=== PATIENT | female | born 1935 | race Caucasian/White ===

== ENCOUNTER 2017-10-03 13:54 | Observation (INO) | payer MEDICARE ==
[2017-10-03 16:03] LABS: CKMB 2.2 ng/mL (0-6.6); Troponin I 0.053 ng/mL (< 0.028)
[2017-10-03] MEDS ORDERED: Albuterol Sulfate 2.5 mg/3 ml Neb NEB PRN (16:53)
--- NOTE | 2017-10-03 18:19 | HP ---
DATE OF ADMISSION: 10/03/2017 CHIEF COMPLAINT: Nasal bleeding and elevated troponins. HISTORY OF PRESENT ILLNESS: This is an 82-year-old white female who initially went to [place] [facility] f mariyaing a sudden onset of nasal bleeding from her right nostril started at around 12:30 in the [facility] ght wherein she tried to stop bleeding on her own using cotton with pressure on the nostril area. As bleeding was pretty worse and she lives all alone away from [place], she called ER at [facility] she went to the ER and the patient was seen by ER physician over there and by the time the bleeding has stopped. The patient is on Eliquis as it was started by supervisor firearms for her history of atrial fibrillation. She is also on aspirin and also Plavix is on the EMR, but the patient denies ta rene any Plavix. The patient was complaining of weakness for the past 1-2 weeks and this concerned w as also raised by her son and the patient lost her appetite and she has been suffering with cough and congestion for the past 1 week and she went to her primary care physician, wherein she was given pre dnisolone to be taken 20 mg and she took for 3 days and also doxycycline was started. The patient wa s feeling very weak and she was not eating for the past 2 days and with elevated troponin, there was suspicion for a possible worsening coronary artery disease and the patient was transferred to [facility] ER for further evaluation of her cardiac status. The patient was seen today. Her EKG was done, which was unremarkable. She had a repeat troponin, which is pending at this time, but the patient ot herwise was stable. She denies having any chest pain, no nausea, no vomiting. Complains of severe c ongestion in her chest and associated with cough for the past 1 week as explained above. PAST MEDICAL HISTORY: 1. Ischemic cardiomyopathy. 2. CABG done 12 years ago. 3. AICD. 4. Type 2 diabetes mellitus. PAST SURGICAL HISTORY: 1. Left breast lumpectomy. 2. Hysterectomy. 3. Partial thyroidectomy. ALLERGIES: CLINDAMYCIN, PENICILLIN, CODEINE, LYRICA and SULFA ANTIBIOTICS. SOCIAL HISTORY: No history of alcohol, no history of illicit drug use. No history of smoking. FAMILY HISTORY: Brother has history of cardiomyopathy and at more than 65 years of age. HOME MEDICATIONS: Home medications have been reviewed and reconciled. 1. Coreg 6.25 mg p.o. b.i.d. 2. Vitamin D3 5000 units p.o. daily. 3. Plavix 75 mg p.o. daily. The patient says she stopped this medication. 4. Insulin lispro sliding scale, she takes 15-25 units subcu as per the sliding scale. 5. Metformin 1000 mg p.o. daily. 6. Nitroglycerin 1 spray under the tongue every 5 minutes for chest pain. 7. Aspirin 81 mg daily. 8. Digoxin 0.125 mcg daily. 9. Lasix 20 mg daily. 10. Gabapentin 300 mg p.o. t.i.d. 11. Insulin detemir 25 units subcu at bedtime. 12. Lisinopril 2.5 mg p.o. daily. 13. Niacin 1000 mg p.o. at bedtime. 14. Pantoprazole 40 mg p.o. b.i.d. 15. Spironolactone 25 mg p.o. b.i.d. REVIEW OF SYSTEMS: All 12 systems are reviewed with the patient thoroughly and found to be negative at this time. Constitutional: Weight loss or gain, sense of well-being, ability to conduct usual activities, exerc ise tolerance. Skin/Breast: Rash, itching, changes in hair growth or loss, nail changes, breast lumps, tenderness, swelling, nipple discharge. Eyes: Vision, double vision, tearing, blind spots, pain. ENT/Mouth: Headaches (location, time of onset, duration, precipitating factors), vertigo, lightheadedness, injury. Vision, double vision, tearing, blind spots, pain, nose b leeding, colds, obstruction, discharge, dental difficulties, gingival bleeding, dentures, neck stiffn ess, pain, tenderness, masses in thyroid or other areas Cardiovascular: Precordial pain, substernal distress, palpitations, syncope, dyspnea on exertion, or thopnea, nocturnal paroxysmal dyspnea, edema, cyanosis, hypertension, heart murmurs, varicosities, ph lebitis, claudication. Respiratory: Pain, shortness of breath, wheezing, stridor, cough, hemoptysis, fever or night sweats Gastrointestinal: Poor appetite, dysphagia, indigestion, abdominal pain, heartburn, eructation, naus ea, vomiting, hematemesis, jaundice, constipation, or diarrhea, abnormal stools (joyce-colored, tarry, bloody, greasy, foul smelling), flatulence, hemorrhoids, recent changes in bowel habits. Genitourinary: Urgency, frequency, dysuria, nocturia, hematuria, polyuria, oliguria, unusual (or marybel nge in) color of urine, stones, hesitancy, change in size of stream, dribbling, acute retention or in continence, libido, potency. Musculoskeletal: Pain, swelling, redness or heat of muscles or joints, limitation, of motion, muscular weakness, atrophy, cramps. Neurologic/Psychiatric: Convulsions, paralyses, tremor, incoordination, parasthesias, difficulties w ith memory of speech, sensory or motor disturbances, or muscular coordination (ataxia, tremor), emoti onal problems, anxiety, depression, previous psychiatric care, unusual perceptions, hallucinations. Allergy/Immunologic: Skin rash, anemia, bleeding tendency, polydipsia, polyuria, intolerance to heat or cold. PHYSICAL EXAMINATION: VITAL SIGNS: Blood pressures are 130/88, heart rate is 80, respiratory is 18, saturation 98% on 3 li ters. GENERAL: The patient is moderately built and moderately nourished. She does not appear to be in acu te distress at this time. She is alert and oriented x3. HEENT: Atraumatic, normocephalic. PERRLA. Extraocular movements are intact. Oral mucosa is pink a nd moist. Nose was inspected. Right nostril has a gauze with no evidence of any active bleeding was noted at this time. Left nostril has no bleeding. CARDIOVASCULAR: S1, S2 normal. No murmurs, rubs or gallops. LUNGS: Bilateral air entry was equal, but wheezing was noted bilaterally and diffusely. No crackles were noted. ABDOMEN: Soft, nontender. No guarding or rebound tenderness. Bowel sounds normal. MUSCULOSKELETAL: No calf tenderness. No pedal edema. No joint tenderness. No joint swelling. SKIN: No cyanosis, no erythema, no rash, no pallor. PSYCHIATRIC: No signs of suicidal ideation. No signs of xavi. LYMPH: No evidence of any generalized lymphadenopathy was noted. NECK: No thyromegaly. LABORATORY DATA: Labs were done at the [facility] and has been reviewed and everything was found to be normal. Hemoglobin was 12.7. The only thing abnormal was troponin, which was 0.053 and rest of the labs here are pending. Chest x-ray was done and was reviewed by me showed an evidence of a right middle lobe infiltrate, but still waiting on the radiologist to read it, but at this time, we would consider this as pneumonia. ASSESSMENT AND PLAN: 1. Acute epistaxis acute epistaxis from the right nostril. 2. Non-ST elevation myocardial infarction. 3. Acute right lung infiltrate, possibly pneumonia. 4. History of congestive heart failure, likely exacerbation, waiting on further labs to confirm. 5. Hypertension. 6. Hyperlipidemia. 7. Hypothyroidism. 8. History of coronary artery disease with coronary artery bypass grafting. PLAN: 1. Plan is to admit this patient and closely monitor for any further bleeding at this time. We will hold the Eliquis. The patient has a history of atrial fibrillation. We will closely monitor with r ate control and will continue the aspirin at this time as the patient is a high risk for coronary art mumtaz disease with elevated troponins. 2. The patient has evidence of infiltrate in the right lung based on the chest x-ray, but waiting on the further labs. Further labs will do influenza A and B screen at this time. We will start the pa tient empirically on antibiotic with levofloxacin 500 mg IV daily. We will continue the nebulizer tr eatments with DuoNebs every 4 hours and albuterol nebs every 2 hours as needed. We will also do ipra tropium spray in the right nostril and also Afrin spray in the right nostril to stabilize the bleedin g. 3. The patient has a history of congestive heart failure. We will restart the patient on home medic ations. The patient is on beta all, Coreg, spironolactone, and lisinopril 2.5 mg and continue th e patient on p.o. Lasix at this time. The patient does not have any evidence of clear volume overloa d, but we will wait for the BNP at this time. 4. Hemoglobin has been stable at 12.7. We will repeat the hemoglobin tomorrow and go from there. 5. The patient has elevated troponins, most likely this could be a demand ischemia as the patient bedoya s a history of atrial fibrillation and the patient has been very anxious with this nose bleeding. We will closely monitor and the patient had a recent echo done by Dr. Hills, so I will consult Dr. Hills and will follow with their recommendations at this time. Because of elevated troponins, we will cont inue the patient on aspirin and beta all. 6. DVT prophylaxis, SCDs. I spent 75 minutes of this patient.
[2017-10-03] MEDS ORDERED: Nitroglycerin 0.4 MG TAB (25 Tab Bottle) PO PRN (18:20)
[2017-10-03] MEDS ORDERED: Ondansetron HCl/PF 4 MG/2 ML Vial IVP PRN (18:20)
[2017-10-03] MEDS ORDERED: Acetaminophen 325 MG TAB PO PRN (18:20)
[2017-10-03] MEDS ORDERED: HYDROcodone/Acetaminophen 5/325 mg Tablet PO PRN (18:20)
[2017-10-03 20:08] LABS: Troponin I 0.053 ng/mL (< 0.028)
[2017-10-03 20:10] VITALS: BMI 24.2
[2017-10-03] MEDS: Carvedilol 3.125 MG TAB PO SCH (20:14)
[2017-10-03] MEDS: Famotidine/PF 20 mg/2ml Vial SLOW IVP SCH (20:15)
[2017-10-03] MEDS: Gabapentin 100 MG CAP PO SCH (20:15)
[2017-10-03] MEDS: Oxymetazoline HCl 0.05% ( 15 ML ) NASAL SCH (20:16)
[2017-10-03] MEDS: Ipratropium Bromide 0.03% Nasal Inhaler 30 ml Bottle EA NARE SCH (20:16)
[2017-10-03] MEDS: Pantoprazole 40 MG GRANULES PACKET PO SCH (20:16)
[2017-10-03] MEDS: Spironolactone 25 MG TAB PO SCH (20:17)
[2017-10-03] MEDS ORDERED: Non-Formulary Item 1 EACH (Insulin Detemir 100 Units/Ml [Levemir] 25 UNITS) SC SCH (21:00)
[2017-10-03] MEDS ORDERED: Insulin Detemir 100 UNITS/ML 25 UNITS in Pre-Filled Syringe 1 EACH SC SCH (21:00)
[2017-10-03] MEDS ORDERED: Meropenem 1 GM in Sodium Chloride 0.9% 100 ML IVPB SCH (22:00)
[2017-10-03] MEDS: Meropenem 1 GM in Sterile Water 20 ML SLOW IVP SCH (22:34)
[2017-10-03 22:47] LABS: Troponin I 0.049 ng/mL (< 0.028)
[2017-10-04 05:11] LABS: Anion Gap 11 mmol/L (10-20); BUN (Urea Nitrogen) 17 mg/dL (9.8-20.1); Calc. Creatinine Clearance 57 mL/min (70-130); Calcium 9.1 mg/dL (7.8-10.44); Carbon Dioxide 26 mmol/L (23-31); Cardiac Risk 8.3 (Less than 4.5); Chloride 100 mmol/L (98-107); Cholesterol 133 mg/dl (< 200 Desired); Estimated GFR-MDRD 69; Glucose 131 mg/dL (83-110); HDL Cholesterol 16 mg/dL (>60 Neg Risk); LDL Cholesterol, Calculated 99 mg/dL; Sodium 133 mmol/L (136-145); Triglycerides 88 mg/dL (Less than 150)
[2017-10-04 05:16] LABS: #Lymphocytes 1.1 thou/uL (1.20-3.40); #Monocytes 0.7 thou/uL (0.11-0.59); #Neutrophils 3.5 thou/uL (1.40-6.50); %Basophils 0.5 % (0.0-1.0); %Eosinophils 0.5 % (0.0-10.0); %Lymphocytes 20.5 % (21.0-51.0); %Monocytes 13.8 % (0.0-10.0); %Neutrophils 64.8 % (42.0-75.0); Mean Corpuscular HGB CONC 33.1 g/dL (32.0-36.0); Mean Corpuscular Hemoglobin 31.5 pg (27.0-31.0); Mean Corpuscular Volume 95.2 fl (81.0-99.0); Mean Platelet Volume 7.8 fL (7.4-10.4); PLT Morphology Comment Appears Decreased; Platelet Count 105 thou/uL (130-400); RBC Distribution Width 12.9 % (11.5-14.5); RBC Morphology Normal; Red Blood Cell (RBC) Count 3.47 mill/uL (4.20-5.40); White Blood Cell (WBC) Count 5.3 thou/uL (4.8-10.8)
[2017-10-04] MEDS: Meropenem 1 GM in Sterile Water 20 ML SLOW IVP SCH ×2 (05:22→14:58)
[2017-10-04] MEDS: Famotidine/PF 20 mg/2ml Vial SLOW IVP SCH (08:25)
[2017-10-04] MEDS: Spironolactone 25 MG TAB PO SCH (08:25)
[2017-10-04] MEDS: Pantoprazole 40 MG GRANULES PACKET PO SCH (08:27)
[2017-10-04] MEDS: Gabapentin 100 MG CAP PO SCH ×2 (08:27→14:58)
[2017-10-04] MEDS: Carvedilol 3.125 MG TAB PO SCH (08:27)
[2017-10-04] MEDS: Oxymetazoline HCl 0.05% ( 15 ML ) NASAL SCH (08:28)
[2017-10-04] MEDS: Ipratropium Bromide 0.03% Nasal Inhaler 30 ml Bottle EA NARE SCH (08:29)
[2017-10-04] MEDS ORDERED: Furosemide 20 MG TAB PO SCH (09:00)
[2017-10-04] MEDS ORDERED: Lisinopril 2.5 MG TAB PO SCH (09:00)
[2017-10-04] MEDS ORDERED: Digoxin 0.125 MG TAB PO SCH (09:00)
[2017-10-04 11:54] VITALS: TEMP 97.6
[2017-10-04 12:09] VITALS: BP 124/62
--- NOTE | 2017-10-04 14:45 | CON ---
DATE OF CONSULTATION: 10/04/2017 INDICATION FOR CONSULTATION: An 82-year-old female with a long history of coronary artery disease, c ardiomyopathy, status post AICD and epistaxis due to being on Eliquis for history of atrial arrhythmi as. HISTORY OF PRESENT ILLNESS: This is a very unfortunate, but pleasant 82-year-old female who has been seen in the past by me for a long history of coronary artery disease. She has undergone bypass surg mumtaz in the past. She had suffered a myocardial infarction prior to her bypass surgery. She has had a severe decrease in left ventricular systolic function in the past. She has undergone an AICD impla nt. She has been stable recently and has had some atrial arrhythmias and I believe she underwent abl ation of her atrial fibrillation. Since that time she has been doing relatively well. She was seen by the vacuum technician and they advised her to stay on Eliquis. She had been doing well until day of her admission when early that morning she developed epistaxis with significant bleeding. Sh e eventually presented to the emergency room due to the nosebleed which she could not get to stop and then once she arrived there she was then transferred to our facility for further evaluation and seth tment. She denied any chest pain. She has been having a recent cough or viral syndrome, but denied any fevers, but had been coughing quite a bit. The last time she was seen by vacuum technician was I believe in 02/2017 at which time they had noted on evaluation of her ICD that she had an increase in her atrial arrhythmias and they advised her to continue on the Eliquis. She had been on Plavix an d this was held. Now she just is on the Eliquis as well as I believe a baby aspirin. Her echocardio gram still shows ejection fraction about 40-45%. She seems to be doing quite well with this. PAST MEDICAL HISTORY: Significant for coronary artery disease, history of AICD, cardiomyopathy which is ischemic in nature. She has a history of atrial arrhythmias, a second degree heart block. She h as had breast cancer, hyperlipidemia, peptic ulcer disease. She has had gallstones and hysterectomy. She has had thyroid surgery, a cholecystectomy. She has a defibrillator. She has had bypass surge ry. ALLERGIES: She is allergic to BACTENE WITH ALCOHOL. She is allergic to LIDOCAINE WITH ALCOHOL. She is allergic to ALCOHOL and MECLIZINE, PREGABALIN, PENICILLIN, SULFA, SULFONAMIDE ANTIBIOTICS, CODEI NE, CLINDAMYCIN, LYRICA. PRESENT MEDICATIONS: Prior to admission included pantoprazole, Humalog insulin, Levemir insulin, nit roglycerin spray as needed, aspirin 81 mg a day, Lovaza 1 gram daily, vitamin D 3 1000 units q.a.m., B12 vitamins, red yeast rice, milk thistle, niacin 500 mg 2 tablets daily, Eliquis 5 mg b.i.d., digox in 125 mcg daily, Coreg 6.25 mg b.i.d., Lasix 20 mg daily, lisinopril 5 mg a half a tablet daily, and gabapentin 300 mg b.i.d. FAMILY HISTORY: Unremarkable except for her brother who also had some cardiomyopathy and defibrillat or implant, but he was also at an older age. She has no alcohol or tobacco abuse. She is . REVIEW OF SYSTEMS: A 12 point review of systems is actually unremarkable except for the recent cough and cold. She has had no recent weight gain, fevers or any weight loss. EYES: Her eyes are negative for any visual changes. ENT: She denies any significant hearing loss. RESPIRATORY: She has complained of the coughing and recent congestion. CARDIOVASCULAR: She denies any chest pain, any palpitations, orthopnea or syncope. VASCULAR: No complaints of claudication or lower extremity edema. GI: She has decreased appetite, but no nausea, vomiting or diarrhea. : No dysuria, polyuria, or hematuria. MUSCULOSKELETAL: No significant new complaints. She does have some joint pain and some mild arthrit is, but otherwise unremarkable. NEURO: Neurologically, she denied any complaints of seizures or syncope. PHYSICAL EXAMINATION: GENERAL: Reveals a very pleasant, well-developed, well-nourished female who is in no acute distress at this time. She is alert and oriented. VITAL SIGNS: Her blood pressure is 108/57, heart rate 84 and regular. She is pacing at 82% sensing and ventricular pacing. O2 saturations are 94%, respiratory rate 18. She is afebrile. HEENT: Reveals the head to be normocephalic, atraumatic. Carotid pulses are present. I could not h ear any significant bruits. There is no obvious JVD. The thyroid did not appear to be enlarged. Or al mucosa was pink and moist. She did have a small lesion on the right ear lobe which may be a skin cancer. This had a small amount of bleeding. CHEST: Her chest has had bilateral coarse rhonchi, more on the left side than the right side. There was no wheezing noted. CARDIOVASCULAR: She has a regular rate and rhythm. She has a normal S1, S2. She has a systolic mur mur at the aortic area as well as at the apex compatible with mitral valve regurgitation, probably so me mild aortic valve sclerosis. ABDOMEN: Soft and nontender with positive bowel sounds. No organomegaly or masses are noted. Femor al pulses are present. EXTREMITIES: Showed no clubbing, cyanosis or edema. Pedal pulses are slightly decreased, but are pr esent. NEUROLOGIC: She appears to be fully intact. SKIN: Warm and dry. There were no significant abnormalities noted. IMPRESSION: 1. Significant epistaxis associated with Eliquis. We will either decrease her Eliquis to 2.5 mg a d ay or even stop the Eliquis and put her back on Plavix. I will discuss this with the electrophysiolo gist. 2. History of cardiomyopathy. This appears to be stable at this time. 3. Status post automatic implantable cardioverter-defibrillator implant. This was recently interrog ated by the vacuum technician and was found to be stable. 4. Recent lower respiratory tract infection. She is not on any antibiotics that I can see. We will continue her present medications. We will leave this up to the discretion of the primary care physi pineda's. Her chest x-ray did appeared to have some congestion, this may be some mild pneumonia, but otherwise I did not see any gross abnormalities noted. 5. Hypertension. This is under very good control at this time. 6. She also has a history of diabetes. This will be dealt with by the primary care service. 7. History of paroxysmal atrial fibrillation for which she was kept on the Eliquis. We will continue to follow this lady with you. Also, she did have an echocardiogram today which show ed ejection fraction of 40-45%, very similar to what she had just recently in the office. She also h as moderate to severe mitral valve regurgitation and also moderate to severe tricuspid valve regurgit ation with mild pulmonary valve regurgitation. She did have some elevated right-sided pressures abou t 48 mmHg in the right ventricle compatible most likely with at least moderate pulmonary hypertension , aortic valve was sclerotic, but no significant stenosis was noted across the valve, both the left a nd right atrium were dilated compatible most likely with some diastolic dysfunction with restrictive type pattern. The anterior wall and apex are severely hypokinetic to akinetic, compatible with a pre vious myocardial infarction which she suffered many years ago. I would be more than happy to continue to follow the patient with you, but it appears that her epista xis has now resolved and if she remains stable, could be discharged home later today and we can eithe r resume her Eliquis at a lower dose or as noted above, may stop it altogether and start a different medication, but will need to discuss this with the vacuum technician. They are the ones who starte d this medication.
--- NOTE | 2017-10-04 15:39 | DIS ---
DATE OF ADMISSION: 10/03/2017 DATE OF DISCHARGE: 10/04/2017 ADMITTING DIAGNOSES: Acute epistaxis with elevated cardiac enzymes. DISCHARGE DIAGNOSES: Acute epistaxis and demand ischemia. SECONDARY DIAGNOSES: 1. Acute bronchitis. 2. Acute bronchitis, pneumonia ruled out. 3. History of congestive heart failure with good ejection fraction. 4. Anemia. CONSULTANTS: Involved in the care is Dr. Hills. HISTORY OF PRESENT ILLNESS AND HOSPITAL COURSE: In brief, this is an 82-year-old white female, who p resented with a complaint of epistaxis. She was on a long-term anticoagulation on Eliquis for atrial fibrillation. The patient had an episode where she did lose significant amount of blood from the no strils and was transferred to [facility] from [place], as she had elevated troponins. The brice christensen had serial troponins, which remained normal, and seen by Dr. Hills, who thought it was more of a dem and ischemia, but there was no evidence of any wall motion abnormality on the 2D echo, which was done here, and the ejection fraction was stable. The patient had a PT and OT evaluation and also suggest ed the patient should be using cane, which the patient is noncompliant with. Also, suggested the pat ie for [facility] facility, but the patient wanted to go back home. Discussed with Dr. Jeana rangel suggested the patient needs to be off of Eliquis at this time, because of the significant bleed jatinder jefferson had, but this needs to be discussed with her mold cutting machine operator, Dr. Paz, who started this brice christensen on Eliquis for the atrial fibrillation. The patient has a low suspicion for pneumonia or possibly bronchitis, so levofloxacin has been prescribed, which the patient will continue at this time. Rosmery michaels is discharged home in stable condition. PHYSICAL EXAMINATION: On day of discharge: VITAL SIGNS: Blood pressure is 108/57, heart rate is 84, respiratory rate 18, saturation 94%. GENERAL: The patient is moderately built and moderately nourished. CARDIOVASCULAR: S1 and S2 normal. No murmurs, no rubs, no gallops. LUNGS: Bilateral air entry was equal. No wheezing, no crackles. ABDOMEN: Soft, nontender, no guarding, no rebound tenderness. Bowel sounds normal. DISCHARGE MEDICATIONS: 1. Coreg 6.25 mg p.o. b.i.d. 2. Cholecalciferol 5000 units p.o. daily. 3. Insulin lispro 20 units subcu daily. 4. Nitroglycerin spray. 5. Aspirin 81 mg daily. 6. Digoxin 125 mcg daily. 7. Lasix 20 mg p.o. daily. 8. Gabapentin 600 mg p.o. t.i.d. 9. Lisinopril 2.5 mg daily. 10. Niacin. 11. Pantoprazole 40 mg twice a day. 12. Spironolactone 25 mg p.o. b.i.d. Her hold medications are Eliquis. Her new medication is levofloxacin 500 mg p.o. daily, continue for 3-4 more days. DISCHARGE INSTRUCTIONS: Continue activity as tolerated. Advised to follow up with the primary care physician in 1-2 weeks. Advised to follow up with Electrophysiology in 1 week to discuss about the E liquis holding off and if there is a need to start her on Plavix. Follow up with Cardiology in 1-2 w eeks. Continue with the cardiac diet. Advised to return to the ER if the patient develops any furth er bleeding. I spent 35 minutes.
[2017-10-04] MEDS ORDERED: Apixaban 5 MG TAB PO SCH (21:00)
--- NOTE | 2017-10-09 13:22 | EKG ---
Test Reason : Blood Pressure : / mmHG Vent. Rate : 099 BPM Atrial Rate : 099 BPM P-R Int : 154 ms QRS Dur : 146 ms QT Int : 378 ms P-R-T Axes : 038 248 058 degrees QTc Int : 485 ms Atrial-sensed ventricular-paced rhythm Abnormal ECG Confirmed by LOIDA CHANDRA ([id number]), make up editor JÚNIOR JACOBSON ([id number]) on 10/09/2017 1:22:38 PM Referred By: Confirmed By:LOIDA CHANDRA
== END 2017-10-04 18:01 | disposition home or self-care (01) ==
LOC: ERS 13:54 → 2SW 18:03
PROVIDERS: ADMIT Family Medicine; ATTEND Family Medicine
DX: R04.0 Epistaxis (principal); I24.8 Other forms of acute ischemic heart disease; J20.9 Acute bronchitis, unspecified; D64.9 Anemia, unspecified; I25.5 Ischemic cardiomyopathy; I11.0 Hypertensive heart disease with heart failure; I50.9 Heart failure, unspecified; E11.9 Type 2 diabetes mellitus without complications; I25.2 Old myocardial infarction; E78.5 Hyperlipidemia, unspecified; E03.9 Hypothyroidism, unspecified; I25.10 Atherosclerotic heart disease of native coronary artery without angina pectoris; I48.0 Paroxysmal atrial fibrillation; Z85.3 Personal history of malignant neoplasm of breast; Z79.01 Long term (current) use of anticoagulants; Z79.4 Long term (current) use of insulin; Z79.82 Long term (current) use of aspirin; Z79.899 Other long term (current) drug therapy; Z88.0 Allergy status to penicillin; Z88.2 Allergy status to sulfonamides; Z88.1 Allergy status to other antibiotic agents; Z88.5 Allergy status to narcotic agent; Z88.8 Allergy status to other drugs, medicaments and biological substances; Z95.1 Presence of aortocoronary bypass graft; Z95.810 Presence of automatic (implantable) cardiac defibrillator; Z90.710 Acquired absence of both cervix and uterus; Z90.49 Acquired absence of other specified parts of digestive tract; Z98.890 Other specified postprocedural states
CPT/HCPCS: 80048; 80061; 82553; 82962 ×2; 83880; 84145; 84484; 85025; 93005; 93306; 94640 ×3; 94760; 96374; 96375; 96376; 97116; 97139 ×2; 99285; G0378; G8978; G8979; G8980; 36415; 36416; A4216; J1815; J1956; J2185; J7620; S0028

== ENCOUNTER 2018-02-28 10:26 | Outpatient (CLI) | payer MEDICARE | END 2018-02-28 10:27 | disposition home or self-care (01) | LOC: BICMAMMO 10:26 | PROVIDERS: ATTEND Family Medicine | DX: Z12.31 Encounter for screening mammogram for malignant neoplasm of breast (principal); Z80.3 Family history of malignant neoplasm of breast; Z85.3 Personal history of malignant neoplasm of breast | CPT/HCPCS: 77063; 77067 ==

== ENCOUNTER 2018-05-04 04:49 | Observation (INO) | payer MEDICARE ==
[2018-05-04 05:28] LABS: #Eosinphils 0.1 thou/uL (0.0-0.7); #Lymphocytes 1.1 thou/uL (1.20-3.40); #Monocytes 0.9 thou/uL (0.11-0.59); #Neutrophils 6.3 thou/uL (1.40-6.50); %Basophils 0.4 % (0.0-1.0); %Eosinophils 1.2 % (0.0-10.0); %Lymphocytes 12.8 % (21.0-51.0); %Monocytes 10.4 % (0.0-10.0); %Neutrophils 75.2 % (42.0-75.0); Hemoglobin 11.1 g/dL (12.0-16.0); Mean Corpuscular HGB CONC 31.1 g/dL (32.0-36.0); Mean Corpuscular Hemoglobin 28.7 pg (27.0-31.0); Mean Corpuscular Volume 92.3 fL (78.0-98.0); Mean Platelet Volume 8.1 fL (7.4-10.4); Platelet Count 145 thou/uL (130-400); RBC Distribution Width 13.9 % (11.5-14.5); Red Blood Cell (RBC) Count 3.87 mill/uL (4.20-5.40); White Blood Cell (WBC) Count 8.4 thou/uL (4.8-10.8)
[2018-05-04 05:39] LABS: ALT (SGPT) 26 U/L (8-55); AST (SGOT) 51 U/L (5-34); Albumin 3.8 g/dL (3.4-4.8); Alkaline Phosphatase 106 U/L (40-150); Anion Gap 10 mmol/L (10-20); BUN (Urea Nitrogen) 23 mg/dL (9.8-20.1); Bilirubin, Total 0.8 mg/dL (0.2-1.2); Calc. Creatinine Clearance 0 mL/min (70-130); Calcium 9.4 mg/dL (7.8-10.44); Carbon Dioxide 25 mmol/L (23-31); Chloride 104 mmol/L (98-107); Estimated GFR-MDRD 47; Globulin 2.9 g/dL (2.4-3.5); Glucose 114 mg/dL (83-110); Lipase 30 U/L (8-78); Potassium 4.2 mmol/L (3.5-5.1); Protein, Total 6.7 g/dL (6.0-8.3); Sodium 135 mmol/L (136-145)
[2018-05-04 05:43] LABS: CKMB 2.9 ng/mL (0-6.6); Troponin I Less than 0.010 ng/mL (< 0.028)
--- NOTE | 2018-05-04 08:08 | RAD ---
PORTABLE CHEST: DATE: 05/04/18. PROVIDED CLINICAL HISTORY: Chest pain. FINDINGS: Comparison 10/03/17. Cardiac silhouette remains enlarged. Median sternotomy changes and left subclav erik cardiac pacing device are redemonstrated. Vascular calcification is again noted. No focal conso lidation, pleural fluid, or pneumothorax apparent. IMPRESSION: Cardiomegaly without evidence for an acute cardiopulmonary process. POS: [facility]
[2018-05-04] MEDS ORDERED: Acetaminophen 325 MG TAB PO PRN (08:28)
[2018-05-04] MEDS ORDERED: Dextrose 5% in Water 1,000 ML IV PRN (08:30)
[2018-05-04] MEDS ORDERED: Dextrose 50% Abboject 50 ML SYRINGE SLOW IVP PRN (08:30)
[2018-05-04 08:37] LABS: Troponin I Less than 0.010 ng/mL (< 0.028)
[2018-05-04] MEDS ORDERED: Apixaban 5 MG TAB PO SCH ×3 (09:00→21:00)
--- NOTE | 2018-05-04 10:15 | HP ---
CHIEF COMPLAINT: Chest pain. HISTORY OF PRESENT ILLNESS: The patient is an 82-year-old female with a past medical history notable for significant coronary artery disease with a history of an KS and subsequent coronary bypass as we ll as some cardiomyopathy with an ejection fraction of 40%-45% with an AICD. Patient reports that la st evening around 09:30-10:00, she started developing a significant pain in the epigastric and chest area. It did not radiate from there. She was unable to characterize the pain any further than sayin g it just hurts. She had no associated nausea or lightheadedness. Did feel mildly short of breath w hen she tried to get up and walk it off. States she feels generally weak and shaky. She tried to go to bed, but the pain persisted, tended to get worse. At 04:00, she became clammy, felt like she had some chills. She called her son, who in turn called an ambulance. On their arrival, the paramedics gave the patient aspirin and nitroglycerin x3. She states that that her pain improved and reports t hat currently it is completely resolved. She does report that she has some mild nausea presently. S he denies any fever, vomiting, diarrhea, or constipation. States she does not recall what her KS sym ptoms felt like in the past, and therefore is not sure if this is similar or not. REVIEW OF SYSTEMS: Notable for left foot pain and some chronic loose bowels, but other than that a 1 0-system review is negative except for all those things mentioned in the history of present illness. 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 Of note, the patient recounted a recent history of left foot pain that persisted for a n umber of weeks until ultimately an x-ray revealed that she had a sewing needle stuck in her foot. Th is was subsequently removed. Patient reports that she had a lot of infection going on during that ti me, although there is no evidence that it was actually diagnosed as infection or treated with antibio tics. She believes that this may have generally weakened her. She was also recently seen in the [facility] for some hemorrhoidal bleeding, being on the Eliquis. She has also had a significa nt epistaxis, related to being on the Eliquis. PAST SURGICAL HISTORY: Breast lumpectomy, hysterectomy, partial thyroidectomy. FAMILY HISTORY: Cardiomyopathy in her brother, who later in life. SOCIAL HISTORY: The patient is a nonsmoker, nondrinker, nondrug user. She lives alone. Her son, Alexsander todd, is her power of consumer attorney and would be her surrogate decision maker. She is currently FULL COD E. ALLERGIES: ROBERT INHIBITORS, CLINDAMYCIN, CODEINE, LEVOFLOXACIN, MECLIZINE, DEMEROL, PENICILLINS, PREG ABALIN, SULFA, and TRIMETHOPRIM. CURRENT MEDICATIONS: Coreg 12.5 one p.o. b.i.d.; digoxin 125 mcg every day; Eliquis 5 mg b.i.d.; Las ix 20 mg every day; gabapentin 300 mg, dosing is not known; lisinopril 20 mg every day (however, the patient appears to have ROBERT inhibitors as an allergy and this needs clarification); pantoprazole 20 m g daily; spironolactone 25 mg; aspirin 81 mg; Levemir insulin and Humulin 50/50 insulin, but the dose s of these are not presently known either. PHYSICAL EXAMINATION: VITAL SIGNS: BP 119/66, pulse 78, respirations 14, O2 sat is 99% on room air. GENERAL APPEARANCE: Age-appropriate female. She is in no distress. She is awake, alert, oriented, pleasant, cooperative, talkative. HEENT: PERRL. Oropharyngeal exam reveals a small 6-7 mm lesion on the left anterolateral tongue, wh ich almost looks like a scab, but does not appear to be inflamed. NECK: Supple and symmetric without lymphadenopathy. HEART: Regular rate and rhythm without murmurs. Left chest AICD palpable. LUNGS: Clear to auscultation bilaterally. ABDOMEN: Soft, nontender, nondistended, positive bowel sounds, no masses, no organomegaly. EXTREMITIES: Warm and dry without a significant edema. She does have a tiny scar on the dorsum of t he left foot where she had the prior needle inserted. EKG shows paced rhythm, but, otherwise, normal. LABORATORY DATA: White count 8.4, hemoglobin 11.1, platelets 145. Sodium 135, potassium 4.2, chlori de 102, CO2 25, BUN 23, creatinine 1.1, glucose 114, total bilirubin 0.8, AST 51, ALT is 26. BNP is 927. Chest x-ray shows cardiomegaly without evidence of acute cardiopulmonary process. IMPRESSION AND PLAN: 1. Chest pain in a patient with a significant history of coronary artery disease and cardiomyopathy. Her symptoms seem to have improved substantially with the use of nitroglycerin, making it obviously concerning for cardiac versus esophageal in nature. The patient will be placed on observation on te lemetry. We will continue to obtain serial troponins. We will consult Cardiology, as she has been f ollowed by Dr. Hills. 2. Epigastric pains, unclear if this is cardiac or more gastrointestinal related. We will maintain on PPI. 3. Diabetes mellitus. We will maintain Accu-Cheks and sliding scale insulin. Get some clarity on h er home insulin regimen. 4. Hypertension. Resuming the patient's beta all. However, need to clarify the patient's aller gy to ROBERT INHIBITORS and the fact that she appears to be on the lisinopril. 5. History of cholelithiasis. The patient is nontender in the right upper quadrant and her symptoms do not appear to be consistent with cholecystitis at this time. We will continue to monitor.
[2018-05-04 11:45] LABS: Troponin I 0.022 ng/mL (< 0.028)
[2018-05-04 12:41] VITALS: BMI 24.5
[2018-05-04] MEDS ORDERED: Insulin NPH/Reg Insulin Hm 300 UNITS/3 ML VIAL SC PRN (13:02)
[2018-05-04] MEDS ORDERED: diphenhydrAMINE 25 MG CAP PO PRN (13:02)
[2018-05-04] MEDS ORDERED: Fish Oil 1,000 MG CAP PO SCH (13:15)
[2018-05-04] MEDS ORDERED: Stress 600 With Zinc 1 TAB PO SCH (13:15)
[2018-05-04] MEDS ORDERED: Spironolactone 25 MG TAB PO SCH (13:15)
[2018-05-04] MEDS ORDERED: Furosemide 20 MG TAB PO SCH (13:15)
[2018-05-04] MEDS ORDERED: Pantoprazole 40 MG GRANULES PACKET PO SCH ×2 (13:15→21:00)
[2018-05-04] MEDS ORDERED: Digoxin 0.125 MG TAB PO SCH (13:15)
[2018-05-04] MEDS: Digoxin 0.125 MG TAB PO SCH (14:14)
[2018-05-04] MEDS: Gabapentin 300 MG CAP PO SCH ×2 (15:53→20:37)
--- NOTE | 2018-05-04 16:27 | CON ---
DATE OF CONSULTATION: 05/04/2018 DATE OF ADMISSION: 05/04/2018 INDICATION FOR CONSULTATION: An 82-year-old female admitted with chest pain. HISTORY OF PRESENT ILLNESS: This very unfortunate 82-year-old had a long history of coronary artery disease who suffered a large anterior myocardial infarction in the past. She underwent bypass surger y to left anterior descending artery. She continued to have cardiomyopathy. She is with ejection fr action less than 30% -35%. She underwent AICD implant. She also underwent her last cardiac catheter ization in 2012, at which time it was noted that the saphenous vein graft to the left anterior descen ding artery had serial lesions of about 90% and also the left anterior descending was 100% occluded i n the proximal area and distally with less than 1 mm vessel after the anastomosis of the bypass, but the saphenous vein graft except for the ostial and proximal portion at least 90%, the mid section was also 90% occluded. The distal left anterior descending artery is less than 1.5 mm vessel and at korin t time, there was no intervention performed on the graft or the other vessels. Her left circumflex w as free of any significant flow-limiting disease. She did have an intermediate branch that distally had a significant stenosis of about 90% distally. This is also less than 2 mm vessel at that area. The left circumflex had no significant flow-limiting disease, but did have some luminal irregularitie s. Also the right coronary had less than 30%-40% stenosis. She has been followed on a routine basis in the office. Her last echocardiogram was in 09/2017 which showed ejection fraction about 40% with moderate diastolic dysfunction. She also has moderate to severe mitral valve regurgitation, moderat e tricuspid valve regurgitation as well as some mild aortic valve sclerosis. She has been doing rela tively well despite the multiple cardiac problems that she had, but yesterday she was seen by the GI doctors and then she went out to lunch with her brother and had some chicken fried steak which she us ually does not tolerate fatty foods or significant milk products due to history of gallbladder diseas e. After that, she came home and later in the evening, it started around 9:00 p.m., she knows she bedoya s some epigastric discomfort. She then went to bed, but the pain persisted, then she became somewhat diaphoretic. She called the ambulance and was taken to the emergency room. In the ambulance, she w as given nitroglycerin. Did have some relief of her pain. At this time her pain is gone, but she ap parently had the pain from about 9:00 yesterday evening to about 3:00 a.m. before she was taken to [facility] emergency room. Then her cardiac enzymes remain negative, we cannot interpret the EKG due to 100% pacing from the ventricular lead. She has had no further discomfort and enzymes have remained negati ve x3 and she has no significant other complaints at this time and no further pain or diaphoresis. S he has had multiple problems in the past with GI. She apparently has irritable bowel syndrome and bedoya s some stool incontinence. She takes Protonix on a routine basis as needed and she took some Protoni x yesterday, but this did not relieve the pain, certainly to eat fried foods or chicken fried steak i s not the norm for this lady who watches pretty much of her diet. Also noted was that the BNP was el evated at 927, which would not be unusual in someone with cardiomyopathy and also she has diastolic d ysfunction, but otherwise she seems to be doing quite well at this time. PAST MEDICAL HISTORY: Significant for the coronary artery disease, bypass surgery. She has also had a history of atrial fibrillation. She has been on anticoagulation. At this time, she appears to be in sinus rhythm. She has diabetes and dyslipidemia. She has had a history of the bypass surgery. She has also had a foot infection and had apparently a sewing needle in her foot. I believe this has since been removed. She does have hypertension as well as she has had a history of breast cancer. She has had thyroid surgery. She has had two left breast lumpectomy performed. She has had a hyster ectomy, cholecystectomy, some history of peptic ulcer disease. She has had an implantable defibrilla tor since 2004. SOCIAL HISTORY: She lives alone. She is a . She has children who are alive and well and very supportive. She has no alcohol or tobacco abuse. She never smoked in the past. ALLERGIES: She is allergic to BENZALKONIUM CHLORIDE. She is allergic to LIDOCAINE, ALCOHOL or ANY K IND OF BACTINE WITH ALCOHOL. She has had difficulty taking MECLIZINE, PREGABALIN, PENICILLIN, SULFUR or any kind of SULFONAMIDE ANTIBIOTIC, ALLERGIC TO CIPRO, CODEINE, AND CLINDAMYCIN. FAMILY HISTORY: Noncontributory. REVIEW OF SYSTEMS: She denied any new HEENT complaints. She does have some cataracts in the past, h ad some problems but these have been removed. She denied any pulmonary complaints such as asthma, em physema, bronchitis. No significant shortness of breath. No recent upper respiratory tract infectio ns or lower respiratory tract infections. GI: She does have, as noted above, irritable bowel and bedoya d epigastric pain and she also has stool incontinence. She denied any complaints. MUSCULOSKELETA L: She does have some arthritis and had some left lower extremity edema, but otherwise no significan t complaints. NEUROLOGIC: No history of seizures or syncope. PHYSICAL EXAMINATION: GENERAL: Reveals an elderly female who is in no acute distress at this time. She is alert, oriented , and pleasant. VITAL SIGNS: Blood pressure 124/60. She is afebrile, heart rate 83 and shows 100% pacing, respirato ry rate 16, O2 saturation 98%. HEENT: Shows head to be normocephalic and atraumatic. Carotid pulses are present. I cannot hear an y significant bruits. There were no thrills. NECK: Did not show any evidence of JVD and the thyroid did not appear to be enlarged. CHEST: Clear to auscultation. There were no rales, rhonchi or wheezing. CARDIOVASCULAR: Exam reveals a regular rate and rhythm. She has a normal S1, S2. She has a loud sy stolic murmur at the apex compatible with her mitral valve regurgitation. She has a well healed surg ical incision over the left infraclavicular area after her AICD implant. ABDOMEN: Soft. There is no tenderness noted at this time. No masses. EXTREMITIES: Showed no clubbing or cyanosis. She has had mild left lower extremity edema. Pedal pu lses are present. NEUROLOGIC: She appears to be fully intact. LABORATORY DATA: Shows hemoglobin to be 11.1, WBC of 8.4, BUN of 23, creatinine 1.1 with a blood sug ar of 114. Her BNP was elevated at 927. Cardiac enzymes are negative. IMPRESSION: 1. Abdominal pain which most likely was gallbladder related. Not sure she has actually had this rem meka or not, but this seems to have resolved, which certainly could have resolved with some nitroglyc leatha also, but there has been no further pain and I suspect that she has had a discomfort to the magn itude that she had for that well for at least 6-8 hours and most likely the cardiac enzymes have been abnormal, but however, have remained normal. EKG is not interpretable since she is pacing 100%. At this time, we will schedule her for stress testing to see whether or not there is any evidence of is chemia in the lateral or inferior areas and if so, she may need to undergo repeat cardiac catheteriza tion. I believe she has a large anterior scar. 2. Diabetes. This is under relatively good control at this time and she watches her diet normally. Her blood sugar is 114 and noted with no other significant problems. 3. History of paroxysmal atrial fibrillation. She appears to be in sinus rhythm at this time. Her EKG shows 100% pacing with sinus rhythm with P waves. 4. Irritable bowel syndrome. She was just seen yesterday by Dr. Cartagena, I believe in the office. She also has a history of external hemorrhoids with occasional bleeding, but I would continue her medica tions as they are far as the Eliquis since she has had some history of intermittent atrial fibrillati on and most of time she is unaware when she has atrial fibrillation. 5. Mitral valve regurgitation on her last echocardiogram. She was noted to have severe mitral valve regurgitation, but she has been tolerating this quite well actually and does not have any overt symp toms of congestive heart failure. We would be more than happy to continue to follow the patient with you should she have further proble ms prior to undergoing stress testing, then she may need to have intervention from our cardiac cathet erization, but at this time, I believe she is stable and hopefully this will just have been due to a gallbladder flare up due to her eating of the fried foods.
[2018-05-04] MEDS ORDERED: Carvedilol 6.25 MG TAB PO SCH (17:00)
--- NOTE | 2018-05-04 17:10 | EKG ---
Test Reason : Blood Pressure : / mmHG Vent. Rate : 081 BPM Atrial Rate : 081 BPM P-R Int : 178 ms QRS Dur : 142 ms QT Int : 418 ms P-R-T Axes : 058 001 043 degrees QTc Int : 485 ms Electronic ventricular pacemaker Confirmed by GERMAN ALVARES, DR. Oleary ([id number]) on 05/04/2018 5:10:31 PM Referred By: Confirmed By:DR. Anirudh PORTER MD
[2018-05-04] MEDS: HumaLOG 300 UNITS/3 ML VIAL SC PRN (18:02)
[2018-05-04] MEDS: Apixaban 5 MG TAB PO SCH (20:39)
[2018-05-04] MEDS: Spironolactone 25 MG TAB PO SCH (20:39)
[2018-05-04] MEDS: Carvedilol 6.25 MG TAB PO SCH (20:39)
[2018-05-04] MEDS: Ipratropium Bromide 0.03% Nasal Inhaler 30 ml Bottle EA NARE SCH (20:41)
[2018-05-04] MEDS ORDERED: Insulin Glargine 25 UNITS in Pre-Filled Syringe SC SCH (21:00)
[2018-05-04] MEDS ORDERED: Lisinopril 2.5 MG TAB PO SCH (21:00)
[2018-05-04] MEDS ORDERED: Non-Formulary Item 1 EACH (Insulin Detemir 100 Units/Ml [Levemir] 25 UNITS) SC SCH (21:00)
[2018-05-05 06:03] LABS: #Eosinphils 0.1 thou/uL (0.0-0.7); #Lymphocytes 1.1 thou/uL (1.20-3.40); #Monocytes 0.5 thou/uL (0.11-0.59); #Neutrophils 3.4 thou/uL (1.40-6.50); %Basophils 0.4 % (0.0-1.0); %Eosinophils 1.9 % (0.0-10.0); %Lymphocytes 21.4 % (21.0-51.0); %Monocytes 10.1 % (0.0-10.0); %Neutrophils 66.2 % (42.0-75.0); Hemoglobin 11.1 g/dL (12.0-16.0); Mean Corpuscular HGB CONC 31.1 g/dL (32.0-36.0); Mean Corpuscular Hemoglobin 28.5 pg (27.0-31.0); Mean Corpuscular Volume 91.7 fL (78.0-98.0); Platelet Count 125 thou/uL (130-400); RBC Distribution Width 13.9 % (11.5-14.5); Red Blood Cell (RBC) Count 3.87 mill/uL (4.20-5.40); White Blood Cell (WBC) Count 5.1 thou/uL (4.8-10.8)
[2018-05-05 06:30] LABS: Anion Gap 11 mmol/L (10-20); BUN (Urea Nitrogen) 17 mg/dL (9.8-20.1); Calc. Creatinine Clearance 49 mL/min (70-130); Calcium 9.7 mg/dL (7.8-10.44); Carbon Dioxide 25 mmol/L (23-31); Chloride 103 mmol/L (98-107); Estimated GFR-MDRD 57; Glucose 228 mg/dL (83-110); Potassium 4.2 mmol/L (3.5-5.1); Sodium 135 mmol/L (136-145)
[2018-05-05] MEDS ORDERED: Stress 600 With Zinc 1 TAB PO SCH (09:00)
[2018-05-05] MEDS ORDERED: Furosemide 20 MG TAB PO SCH (09:00)
[2018-05-05] MEDS ORDERED: Fish Oil 1,000 MG CAP PO SCH (09:00)
[2018-05-05] MEDS ORDERED: ADENOSINE 60 MG/20 ML VIAL ONE (10:52)
[2018-05-05] MEDS: Digoxin 0.125 MG TAB PO SCH (13:50)
[2018-05-05] MEDS: Apixaban 5 MG TAB PO SCH (13:52)
[2018-05-05] MEDS: Carvedilol 6.25 MG TAB PO SCH (13:52)
[2018-05-05] MEDS: Gabapentin 300 MG CAP PO SCH ×2 (13:53)
[2018-05-05] MEDS: Spironolactone 25 MG TAB PO SCH (13:54)
[2018-05-05] MEDS: Ipratropium Bromide 0.03% Nasal Inhaler 30 ml Bottle EA NARE SCH ×2 (13:55→16:31)
[2018-05-05 16:10] VITALS: BP 141/63; TEMP 97.8
--- NOTE | 2018-05-05 16:13 | NM ---
CARDIAC SPECT 05/05/18 HISTORY: 82-year-old female with coronary artery disease status post CABG, cardiomyopathy, atrial fibrillation , hypertension, diabetes, dyslipidemia. TECHNIQUE: A myocardial perfusion scan was performed using the single isotope two day protocol with 28 millicuri es technetium 99m Sestamibi injected intravenously for both stress and rest images. Pharmacologic st ress with Adenosine was monitored and interpreted by Dr. Topete. FINDINGS: Fixed defects are seen in the apex and lateral blood. No reversible defects are identified. GATED SPECT LVEF: 45%. WALL MOTION: Apical and lateral wall hypokinesis. IMPRESSION: 1. No evidence of reversible ischemia. 2. Scarring in the apical and lateral blood. POS: [facility]
[2018-05-05] MEDS: HumaLOG 300 UNITS/3 ML VIAL SC PRN (16:47)
--- NOTE | 2018-05-05 17:31 | PDOC.CTH ---
Cardiology Progress Note - Subjective Feels better . No chest pain. Stress test negative for ischemia. - Objective Vital Signs Temp Pulse Resp BP BP Pulse Ox 05/05/18 15:53 97.8 F 81 21 H 141/63 H 98 05/05/18 13:50 88 05/05/18 13:10 97.7 F 88 18 117/55 L 100 05/05/18 07:45 97.8 F 74 20 126/64 96 Weight 151 lb 11.2 oz 05/04/18 05/05/18 05/06/18 06:59 06:59 06:59 Intake Total 920 Output Total 1900 Balance -980 - Physical Examination General/Neuro: alert & oriented x3 Lungs: CTA Heart: RRR - Labs Result Diagrams: 05/05/18 05:21 05/05/18 05:21 Troponin/CKMB CK-MB (CK-2) 2.9 ng/mL (0-6.6) 05/04/18 05:08 Troponin I 0.022 ng/mL (< 0.028) 05/04/18 11:12 - Assessment/Plan 1. Chest pain: resolved. Likely due to gall bladder. She should see GI as an outpt. 2. CAD: stable. 3. CMY, AICD in place. EF by nuclear study > 40% Ok to d/c from a cardiac standpoint.F/U with me or [employer] in the office in 2-4 weeks.
== END 2018-05-05 17:35 | disposition home or self-care (01) ==
LOC: ERS 04:49 → 2SW 07:58
PROVIDERS: ADMIT Hospitalist; ATTEND Hospitalist
DX: R07.9 Chest pain, unspecified (principal); I25.2 Old myocardial infarction; I25.10 Atherosclerotic heart disease of native coronary artery without angina pectoris; I42.9 Cardiomyopathy, unspecified; E89.0 Postprocedural hypothyroidism; E11.9 Type 2 diabetes mellitus without complications; I10 Essential (primary) hypertension; I48.91 Unspecified atrial fibrillation; E78.5 Hyperlipidemia, unspecified; K58.9 Irritable bowel syndrome, unspecified; R10.9 Unspecified abdominal pain; I34.0 Nonrheumatic mitral (valve) insufficiency; Z95.1 Presence of aortocoronary bypass graft; Z95.810 Presence of automatic (implantable) cardiac defibrillator; Z88.1 Allergy status to other antibiotic agents; Z88.2 Allergy status to sulfonamides; Z88.5 Allergy status to narcotic agent; Z88.8 Allergy status to other drugs, medicaments and biological substances; Z79.01 Long term (current) use of anticoagulants; Z79.82 Long term (current) use of aspirin; Z79.4 Long term (current) use of insulin; Z79.899 Other long term (current) drug therapy
CPT/HCPCS: 71045; 78452; 80048; 80053; 82553; 82962 ×2; 83690; 83880; 84484 ×2; 85025 ×2; 93005; 93017; 99285; A9500; G0378 ×2; 36415; 36416; J0153

== ENCOUNTER 2018-06-08 15:29 | Observation (INO) | payer MEDICARE ==
[2018-06-08 16:08] LABS: #Eosinphils 0.1 thou/uL (0.0-0.7); #Lymphocytes 0.9 thou/uL (1.20-3.40); #Monocytes 0.6 thou/uL (0.11-0.59); %Basophils 0.4 % (0.0-1.0); %Eosinophils 3.1 % (0.0-10.0); %Lymphocytes 18.4 % (21.0-51.0); %Monocytes 13.2 % (0.0-10.0); %Neutrophils 64.8 % (42.0-75.0); Mean Corpuscular HGB CONC 30.6 g/dL (32.0-36.0); Mean Corpuscular Hemoglobin 27.7 pg (27.0-31.0); Mean Corpuscular Volume 90.8 fL (78.0-98.0); Mean Platelet Volume 8.9 fL (7.4-10.4); Platelet Count 114 thou/uL (130-400); RBC Distribution Width 14.9 % (11.5-14.5); Red Blood Cell (RBC) Count 4.32 mill/uL (4.20-5.40); White Blood Cell (WBC) Count 4.7 thou/uL (4.8-10.8)
[2018-06-08 16:26] LABS: ALT (SGPT) 23 U/L (8-55); AST (SGOT) 30 U/L (5-34); Alkaline Phosphatase 92 U/L (40-150); Anion Gap 13 mmol/L (10-20); BUN (Urea Nitrogen) 17 mg/dL (9.8-20.1); Calc. Creatinine Clearance 0 mL/min (70-130); Calcium 9.7 mg/dL (7.8-10.44); Carbon Dioxide 25 mmol/L (23-31); Chloride 102 mmol/L (98-107); Estimated GFR-MDRD 42; Globulin 2.9 g/dL (2.4-3.5); Glucose 265 mg/dL (83-110); Potassium 4.4 mmol/L (3.5-5.1); Protein, Total 6.9 g/dL (6.0-8.3); Sodium 136 mmol/L (136-145)
[2018-06-08 16:30] LABS: CKMB 2.9 ng/mL (0-6.6); Troponin I Less than 0.010 ng/mL (< 0.028)
[2018-06-08 18:37] VITALS: BMI 24.7
[2018-06-08] MEDS ORDERED: Ondansetron PF 4 MG/2 ML Vial IVP PRN (21:28)
[2018-06-08] MEDS ORDERED: Senokot S 8.6-50 MG TAB PO PRN (21:28)
[2018-06-08] MEDS ORDERED: Ondansetron ODT 4 MG TAB PO PRN (21:28)
[2018-06-08] MEDS ORDERED: Acetaminophen 325 MG TAB PO PRN (21:28)
[2018-06-08] MEDS ORDERED: Dextrose 5% in Water 1,000 ML IV PRN (21:34)
[2018-06-08] MEDS ORDERED: diphenhydrAMINE 25 MG CAP PO PRN (21:34)
[2018-06-08] MEDS ORDERED: Dextrose 50% Abboject 50 ML SYRINGE SLOW IVP PRN (21:34)
[2018-06-08] MEDS ORDERED: Apixaban 2.5 MG TAB PO SCH (22:00)
[2018-06-08] MEDS ORDERED: Gabapentin 300 MG CAP PO SCH (22:15)
[2018-06-08] MEDS ORDERED: Spironolactone 25 MG TAB PO SCH (22:15)
[2018-06-08] MEDS ORDERED: Lisinopril 2.5 MG TAB PO SCH (22:15)
[2018-06-08] MEDS ORDERED: Insulin Glargine 25 UNITS in Pre-Filled Syringe 1 EACH SC SCH (22:15)
[2018-06-08] MEDS ORDERED: Carvedilol 6.25 MG TAB PO SCH (22:15)
[2018-06-08] MEDS: HumaLOG 300 UNITS/3 ML VIAL SC PRN (22:35)
[2018-06-09] MEDS ORDERED: Melatonin 3 MG TAB PO PRN (00:40)
[2018-06-09] MEDS ORDERED: cefTRIAXone\\ROCEPHIN 1 GM in Sodium Chloride 0.9% 100 ML IVPB SCH ×2 (02:00→21:00)
[2018-06-09 05:25] LABS: ALT (SGPT) 21 U/L (8-55); AST (SGOT) 24 U/L (5-34); Albumin 3.5 g/dL (3.4-4.8); Alkaline Phosphatase 88 U/L (40-150); Anion Gap 11 mmol/L (10-20); BUN (Urea Nitrogen) 16 mg/dL (9.8-20.1); Bilirubin, Total 0.8 mg/dL (0.2-1.2); Calc. Creatinine Clearance 46 mL/min (70-130); Calcium 9.2 mg/dL (7.8-10.44); Carbon Dioxide 27 mmol/L (23-31); Chloride 104 mmol/L (98-107); Estimated GFR-MDRD 53; Globulin 2.5 g/dL (2.4-3.5); Glucose 160 mg/dL (83-110); Magnesium 1.6 mg/dL (1.6-2.6); Sodium 138 mmol/L (136-145); Uric Acid 9.8 mg/dL (2.6-6.0)
[2018-06-09 05:49] LABS: Eosinophils 5 % (0-10); Hemoglobin 10.5 g/dL (12.0-16.0); Lymphocytes 28 % (21-51); MDiff Complete? YES; Mean Corpuscular HGB CONC 29.5 g/dL (32.0-36.0); Mean Corpuscular Hemoglobin 26.6 pg (27.0-31.0); Mean Corpuscular Volume 90.3 fL (78.0-98.0); Mean Platelet Volume 8.9 fL (7.4-10.4); Monocytes 19 % (0-10); Neutrophil 48 % (42-75); PLT Morphology Comment Appears Decreased; Platelet Count 101 thou/uL (130-400); RBC Distribution Width 14.9 % (11.5-14.5); Red Blood Cell (RBC) Count 3.96 mill/uL (4.20-5.40); White Blood Cell (WBC) Count 3.7 thou/uL (4.8-10.8)
[2018-06-09] MEDS: Furosemide 20 MG/2 ML VIAL SLOW IVP SCH ×2 (06:04→15:10)
[2018-06-09 06:54] LABS: Digoxin 0.84 ng/mL (0.8-2.0)
--- NOTE | 2018-06-09 07:45 | HP ---
CHIEF COMPLAINT: Shortness of breath. HISTORY OF PRESENT ILLNESS: This is an 83-year-old female with past medical history significant for systolic heart failure, status post pacemaker; diabetes mellitus type 2; hyperlipidemia; hypertension; breast cancer, status post chemotherapy and radiation, presenting to the hospital with shortness of breath. Patient went to [facility]. In a [facility], there was a possible concern for CHF. Therefore, patient has been transferred to the hospital to be admitted to be treated for CHF and so the patient can be able to see her race car driver, who saw the patient in the past. The patient states that she has been having some chest tightness and discomfort with ambulation. The patient states that she has always had shortness of breath with exertion; however, recently about 3 weeks ago, the symptoms have gradually been getting worse and now it has become worse than before. The patient states that mild exertion gives her severe shortness of breath. Patient get SOB with any movement. Patient also states that she also has peripheral edema, which was worse than before. Of note, patient was recently seen in the hospital on 2017 for chest discomfort and a workup was done, which was negative. Dr. Hills saw the patient during that time. This year, patient had an echo done which showed that the patient's ejection fraction is currently now between 40-45%. In the past, patient's ejection fraction was 30% and patient required AICD placed. The patient has extensive cardiac history; however, patient's race car driver sees patient frequently. Currently, the patient denies any fever, chills, palpitations, abdominal pain, nausea, vomiting. REVIEW OF SYSTEMS: Positive for shortness of breath, otherwise as documented in the HPI. All other systems were reviewed and are negative. PAST MEDICAL HISTORY: 1. Coronary artery disease, status post AICD and CABG. 2. Congestive heart failure. 3. Pacemaker placement. 4. Diabetes mellitus type 2. 5. Hyperlipidemia. 6. Hypertension. 7. Breast cancer, status post chemo and radiation. PAST SURGICAL HISTORY: 1. Lumpectomy x2. 2. Coronary artery bypass graft surgery in 2004. 3. Hysterectomy. 4. Partial thyroidectomy. PSYCHIATRIC HISTORY: No psych history. SOCIAL HISTORY: The patient denies alcohol use, denies any drug use, denies any smoking history. ALLERGIES: Patient is allergic to ROBERT INHIBITORS, BACTRIM, CLINDAMYCIN, CODEINE SULFATE, LEVOFLOXACIN, LYRICA, MECLIZINE, , PENICILLIN, SULFA. CURRENT MEDICATIONS: Patient is on carvedilol 6.25, digoxin 125, Eliquis 2.5 b.i.d., furosemide 20 mg, gabapentin 600, lisinopril 20 mg, pantoprazole 20 mg, spironolactone 25 mg, Levemir 25 units, niacin, aspirin, and Humalog mix 75/25. FAMILY HISTORY: Reviewed and non-contributory PHYSICAL EXAMINATION: VITAL SIGNS: Blood pressure is 135/71, pulse is 86, respiratory rate of 23, temperature of 97, O2 sat is 100 on room air. GENERAL: The patient is lying in bed comfortably, does not appear to be in any acute distress. The patient is speaking in full sentences. HEENT: Normocephalic, atraumatic. Pupils are equal, round, and reactive to light. Extraocular movements are intact. No scleral icterus. Mucous membranes are moist. NECK: No JVD. Trachea is midline. Full range of motion. RESPIRATORY: The patient has some rales bilaterally at the lower lobes. CARDIOVASCULAR: Patient has a 3/6 systolic murmur, best heard at the left sternal border, regular rate and rhythm. ABDOMEN: Soft, nontender, nondistended, positive bowel sounds in all quadrants. EXTREMITIES: Patient has 5/5 upper extremity strength, good pulses bilaterally at the upper extremity. Lower extremity: Patient has some edema bilaterally, pitting 1+ pitting edema. NEUROLOGIC: Cranial nerves II through XII grossly intact. No neurologic deficit noted. SKIN: Warm, dry, and intact. PSYCHIATRIC: The patient has normal affect. Alert and oriented x3. EKG: A 12-lead EKG shows atrial-sensed ventricular paced rhythm. IMAGING: Chest x-ray showed some cardiomegaly. LABORATORY DATA: WBC is 4.7, hemoglobin is 12.0, hematocrit is 39.2, platelet count is 114,000. Sodium is 136, potassium is 4.4, chloride is 102, carbon dioxide of 25, anion gap of 13, BUN is 17, creatinine is 1.23, GFR is 42, glucose is 265. BNP is 1156, AST is 30, ALT is 23. TSH is pending. ASSESSMENT AND PLAN: This is an 83-year-old female with extensive cardiac history being admitted for: 1. Acute on chronic systolic heart failure. At this point, we are going to continue the patient on Lasix. We will get cardiology consult. We will continue current management. 2. Hypertension. We will monitor the patient's blood pressure closely. We will continue patient on current management. We will give patient blood pressure medication as needed and we will continue patient on her home medications. 3. Urinary tract infection. We will start the patient on Rocephin. We will continue patient on this medication. 4. Coronary artery disease, status post automated implantable cardioverter defibrillator. Cardiology is on consult. We will continue the patient on current management. 5. Diabetes mellitus type 2. We will continue insulin sliding scale. 6. Hyperlipidemia. We will continue patient on current management. 7. Deep venous thrombosis and gastrointestinal prophylaxis. MTDD
[2018-06-09] MEDS: Famotidine/PF 20 mg/2ml Vial SLOW IVP SCH (09:20)
[2018-06-09] MEDS: Fish Oil 1,000 MG CAP PO SCH (09:23)
[2018-06-09] MEDS: Carvedilol 6.25 MG TAB PO SCH ×2 (09:25→22:14)
[2018-06-09] MEDS: Apixaban 2.5 MG TAB PO SCH ×2 (09:25→22:14)
[2018-06-09] MEDS: Digoxin 0.125 MG TAB PO SCH (09:25)
[2018-06-09] MEDS: Stress 600 With Zinc 1 TAB PO SCH (09:26)
[2018-06-09] MEDS: Famotidine 20 MG TAB PO SCH (09:26)
[2018-06-09] MEDS: Spironolactone 25 MG TAB PO SCH ×2 (09:26→22:16)
[2018-06-09] MEDS: Gabapentin 300 MG CAP PO SCH ×3 (09:30→22:15)
[2018-06-09 09:43] LABS: Bacteria/HPF None Seen HPF (None Seen); Bilirubin Negative (Negative); Blood, Urine Negative (Negative); Clarity CLEAR (Clear); Glucose, Urine (Dipstick) Negative (Negative); Hyaline Casts/LPF 0-3 HYALINE CAST LPF (0-3 Hyaline); Leukocyte Moderate (Negative); Nitrite Negative (Negative); Pathc Cast-AUWi Flag 0.29 (0-2.49); Protein, Urine (Dipstick) Negative (Neg-Trace); RBC/HPF None Seen HPF (0-3); Specific Gravity, Urine 1.009 (1.002-1.036); Squamous Epithelial None Seen HPF (0-3)
[2018-06-09] MEDS: HumaLOG 300 UNITS/3 ML VIAL SC PRN ×3 (12:16→22:16)
--- NOTE | 2018-06-09 17:58 | PDOC.PN ---
- Subjective Encounter Start Date: 06/09/18 Encounter Start Time: 10:00 Patient lying in bed, she reports little improvement, but is still not feeling well. She denies chest pain but reports some shortness of breath. UA positive for UTI and she is tolerating IV ceftriaxone. No nausea, vomiting or diarrhea. No headache or dizziness. - Objective Resuscitation Status: Resuscitation Status FULL:Full Resuscitation MAR Reviewed: Yes Vital Signs & Weight: Vital Signs (12 hours) Temp Pulse Pulse Pulse Resp BP BP 06/09/18 15:09 97.9 F 72 20 06/09/18 13:30 74 74 124/65 06/09/18 10:59 98.0 F 77 20 06/09/18 09:25 71 125/59 L 06/09/18 07:10 97.4 F L 71 20 BP BP Pulse Ox Pulse Ox Pulse Ox 06/09/18 15:09 117/60 97 06/09/18 13:30 124/61 98 99 06/09/18 10:59 127/59 L 98 06/09/18 09:25 06/09/18 07:10 125/59 L 95 Weight Weight 153 lb 4.8 oz I&O: 06/08/18 06/09/18 06/10/18 06:59 06:59 06:59 Intake Total 130 100 Output Total 700 2400 Balance -570 -2300 Result Diagrams: 06/09/18 04:27 06/09/18 04:27 Additional Labs: Accuchecks 06/09/18 06/09/18 06/08/18 10:34 06:05 20:28 POC Glucose 242 H 145 H 302 H Radiology Reviewed by me: Yes EKG Reviewed by me: Yes Phys Exam - Physical Examination Constitutional: NAD HEENT: PERRLA, moist MMs, sclera anicteric, oral pharynx no lesions Neck: no nodes, no JVD, supple, full ROM Respiratory: no wheezing, no rhonchi, clear to auscultation bilateral Cardiovascular: RRR, no rub 2/6 systolic murmur noted Gastrointestinal: soft, non-tender, no distention, positive bowel sounds Musculoskeletal: no edema, pulses present Neurological: non-focal, normal sensation, moves all 4 limbs Lymphatic: no nodes Psychiatric: normal affect, A&O x 3 Skin: no rash, normal turgor, cap refill <2 seconds Dx/Plan (1) UTI (urinary tract infection) Status: Acute (2) Hypertension Code(s): I10 - ESSENTIAL (PRIMARY) HYPERTENSION Status: Acute (3) Systolic heart failure Code(s): I50.20 - UNSPECIFIED SYSTOLIC (CONGESTIVE) HEART FAILURE Status: Acute (4) CAD Code(s): 414.02 - CORON ATHEROSCLEROSIS AUTOLOG VEIN BYPASS GRAFT Status: Chronic (5) Diabetes mellitus type 2 Code(s): E11.9 - TYPE 2 DIABETES MELLITUS WITHOUT COMPLICATIONS Status: Chronic - Plan cont current plan of care * Continue medical management with appropriate home medications. Cardiology consulted. * UA positive for UTI, check urine culture and continue IV ceftriaxone with changes pending culture result. * Disposition pending patient progress and cardiology recommendations.
[2018-06-09] MEDS ORDERED: Insulin Glargine 25 UNITS in Pre-Filled Syringe 1 EACH SC SCH (21:00)
[2018-06-09] MEDS ORDERED: Non-Formulary Item 1 EACH (Insulin Detemir 100 Units/Ml [Levemir] 25 UNITS) SC SCH (21:00)
[2018-06-09] MEDS ORDERED: Lisinopril 2.5 MG TAB PO SCH (21:00)
--- NOTE | 2018-06-09 21:26 | CON ---
DATE OF CONSULTATION: 06/09/2018 INDICATION FOR CONSULTATION: An 83-year-old female with CHF exacerbation. HISTORY OF PRESENT ILLNESS: This very unfortunate elderly female who has been followed by me for many years with a history of cardiomyopathy. She suffered a myocardial infarction in the past, underwent bypass surgery. She has also had an AICD placed. Her last echocardiogram showed ejection fraction about 45%. She recently was in the hospital back in April of this year and was admitted on 05/04/2018. At that time, she was also having some chest discomfort and some shortness of breath. At this time, she has no chest discomfort, but has been noticing recently she has been having more fatigue, not being able to do very many things and has been more short of breath and she presented to the hospital with worsening of her shortness of breath and dyspnea on exertion. She is feeling better now that she has had some diuresis. PAST MEDICAL HISTORY: Significant for coronary artery disease, bypass surgery. She has had a history of atrial fibrillation. She is maintaining sinus rhythm. She has been on oral anticoagulation. She has been recently in sinus rhythm. She has a dual-chamber pacemaker which is actually a biventricular AICD with an atrial lead. She also has diabetes and dyslipidemia. She has had bypass surgery. She has had a foot infection. She has had a history of hypertension. She has had a history of breast cancer. She has had thyroid surgery. She has had 2 left breast lumpectomies performed. She has had a hysterectomy, cholecystectomy. She has a history of peptic ulcer disease. Her defibrillator was implanted in 2004. SOCIAL HISTORY: She still lives alone. She is a . She has children who are alive and well. One son lives very close by. She has no alcohol or tobacco abuse. She never smoked. ALLERGIES: She has a long list of medications she is allergic to which include , BENZALKONIUM CHLORIDE, LIDOCAINE, ALCOHOL. She has a history with MECLIZINE, PREGABALIN, PENICILLIN, SULFUR or any kind of SULFONAMIDE ANTIBIOTICS , CIPRO, CODEINE, and CLINDAMYCIN. FAMILY HISTORY: Noncontributory. REVIEW OF SYSTEMS: She denied any new HEENT complaints. She has had no pulmonary complaints except for the shortness of breath. She has had no recent upper respiratory tract infections, pneumonias or coughing. She has some occasional dry cough, but no significant other infectious coughing. She has no significant GI or complaints. Musculoskeletal: She has arthritis and she has had some lower extremity edema. Neurologic: No history of seizures or syncope. PRESENT MEDICATIONS: She has been placed on Rocephin as well as insulin, Eliquis, aspirin 81 mg a day, Coreg 6.25 mg b.i.d., vitamin D3, Lanoxin 0.125 mg daily, Pepcid, fish oil, Lasix 20 mg b.i.d., Neurontin, lisinopril 2.5 mg once a day, Aldactone 25 mg b.i.d. and she is on other p.r.n. medications. PHYSICAL EXAMINATION: GENERAL: Reveals an elderly female who is in no acute distress at this time. She has diuresed a significant amount of fluid. Since she has been admitted to the hospital, she has diuresed almost 3 liters. Physical examination reveals a well-developed, well-nourished female for her age. She is actually in pretty good shape. VITAL SIGNS: Blood pressure 127/59, heart rate is 77 and shows pacing 100% of the time. O2 saturation 98%, respiratory rate is 20, temperature is 98. HEENT: Shows head to be normocephalic and atraumatic. Carotid pulses are present. There are no bruits. There is no obvious JVD. CHEST: Clear to auscultation. I did not hear any rales, rhonchi or wheezing at this time. CARDIOVASCULAR: Exam reveals a regular rate and rhythm. She has a well healed surgical incision under the left infraclavicular area after an AICD was implanted. This all appears to be well healed and has been there for quite some time. Cardiovascular exam otherwise, she does have a systolic murmur at the apex which is really loud due to her previous history of mitral valve regurgitation. ABDOMEN: Soft and nontender. Positive bowel sounds are present. EXTREMITIES: Show no clubbing or cyanosis. She has minimal lower extremity edema. Pedal pulses are present. NEUROLOGIC: She appears to be intact. She has normal strength and tone for someone of her age. LABORATORY AND X-RAY FINDINGS: Shows a hemoglobin of 10.5 on admission it was 12.2, which was rather interesting since she is being diuresed, she was expected that hemoglobin to increase. WBC is 3.4, platelet count of 101,000. Her creatinine is now 1.0, was slightly elevated on admission, but has decreased since she has diuresed. BUN is 16. Blood sugar 160. Potassium is 4.0. Her BNP is 1156. Cardiac enzymes are negative. Chest x-ray does show a small left pleural effusion with evidence of congestive heart failure with some increased vascularity. EKG shows biventricular pacing with occasional AV pacing. IMPRESSION: 1. Elderly female with congestive heart failure exacerbation. We will need to continue to readjust her medications and her diuretics. In order to continue her medications, I will continue to watch her very carefully. I have given her the option previously and we will rediscuss again about perhaps intervening on her mitral valve since she has severe mitral valve regurgitation, left atrial dilatation, perhaps she will be a candidate to undergo a clip of the valve to decrease some of the mitral valve regurgitation to see whether or not this may decrease some of her episodes of congestive heart failure. I will rediscuss this with Dr. Nix in [place] and see whether or not she is agreeable and may be a candidate to undergo the procedure. 2. History of diabetes. This is under relatively good control. This will be dealt with by the primary care service. She does have a history of intermittent atrial fibrillation in the past but at this time, remains in sinus rhythm. 3. History of automatic implantable cardioverter defibrillator implant. This also appears to be functioning normally. 4. History of coronary artery disease, status post myocardial infarction and bypass surgery. These appear to be stable at this time. She did undergo stress testing in April, which showed no evidence of reversible ischemia. Ejection fraction was about 45%. Her bypass surgery was in 2004 with a single vessel bypass to the left anterior descending artery. She had a cardiac catheterization in 2012, which showed LAD of 90% proximal stenosis and 100% occlusion of the mid portion which was filling distally from the vein graft which had diffuse atherosclerosis. She also had a 70-80% proximal and mid disease in the saphenous vein graft, but she had no complaints at that time and the stress test does not show any evidence of ischemia. I would be more than happy to continue to follow the patient with you and further recommendations will depend on whether or not she is agreeable or whether or not she is a candidate to proceed with a mitral valve repair or clipping. After I discussed her case with Dr. Nix in [place]. Otherwise, I would agree with the present management of the diuretics. We will continue her beta blockers. BLANCA
[2018-06-10] MEDS: Furosemide 20 MG/2 ML VIAL SLOW IVP SCH ×2 (05:53→14:26)
[2018-06-10] MEDS: HumaLOG 300 UNITS/3 ML VIAL SC PRN ×2 (06:10→11:16)
[2018-06-10] MEDS: Famotidine/PF 20 mg/2ml Vial SLOW IVP SCH (08:56)
[2018-06-10] MEDS: Carvedilol 6.25 MG TAB PO SCH (08:57)
[2018-06-10] MEDS: Apixaban 2.5 MG TAB PO SCH (08:57)
[2018-06-10] MEDS: Famotidine 20 MG TAB PO SCH (08:58)
[2018-06-10] MEDS: Gabapentin 300 MG CAP PO SCH ×2 (08:58→14:36)
[2018-06-10] MEDS: Fish Oil 1,000 MG CAP PO SCH (08:58)
[2018-06-10] MEDS: Digoxin 0.125 MG TAB PO SCH (08:58)
[2018-06-10] MEDS: Spironolactone 25 MG TAB PO SCH (08:59)
[2018-06-10] MEDS: Stress 600 With Zinc 1 TAB PO SCH (08:59)
[2018-06-10] MEDS ORDERED: cefTRIAXone\\ROCEPHIN 1 GM in Sodium Chloride 0.9% 100 ML IVPB SCH (10:00)
[2018-06-10 12:13] VITALS: TEMP 97.5
[2018-06-10 15:15] VITALS: BP 120/59
--- NOTE | 2018-06-10 19:10 | DIS ---
DATE OF ADMISSION: 06/08/2018 DATE OF DISCHARGE: 06/10/2018 DISCHARGE DIAGNOSES: 1. Acute on chronic congestive heart failure, improved and stable. 2. History of diabetes mellitus, stable. 3. History of coronary artery disease, stable. 4. Hypertension, stable. CONSULTATIONS: Cardiology services, Dr. Hills. PERTINENT LABORATORY AND DIAGNOSTIC FINDINGS: WBC 3.7, RBC 3.96, hemoglobin 10.5. Sodium 138, potas sium 4.0, creatinine on admission 1.23, trended down to 1.00, glucose 160, troponin less than 0.010, CK-MB 2.9, BNP 1156.6. TSH 1.5. Urinalysis showed moderate leukocyte esterase, but urine culture sh owed normal skin cam. Digoxin 0.84. HOSPITAL COURSE: Mrs. Woods is a pleasant 83-year-old female who was admitted to the hospital f or her acute on chronic systolic heart failure, she was treated with IV furosemide and Cardiology ser vices, Dr. Hills was consulted for further evaluation. Dr. Hills did determine that she will continue on her home medications along with her diuretics. It was also determined that the patient has a hist ory of severe mitral valve regurgitation, Dr. Hills did suggest a possible clip of the valve in the [facility] future, she had contacted Dr. Nix in [place] for this procedure and this is a possibility. It w as first recommended that patient undergo cardiac catheterization. It was at that time Dr. Hills plan s to follow up with the patient as an outpatient basis for further management and heart catheterizati on. She had determined the patient is stable for discharge and should follow up with her in her off ce in 1-2 weeks. Patient's UA on admission was found to be positive for leukocyte esterase, she was started on IV Rocephin; however, urine culture did show that the urine was a contaminant as displayed normal skin cam. The patient did not experience any symptoms at that time which included frequenc y, urgency and dysuria. Therefore, she was discontinued off antibiotics and it was recommended that patient not need antibiotics at this time. She was seen and examined prior to discharge, patient's s ymptoms of shortness of breath and overall not feeling well had resolved with continuation of furosem chrissie. Patient had declined chest pain, shortness of breath or abdominal pain. She was able to walk d own the [place] without any acute symptoms at that time. She was found to return to her baseline, she w as instructed to continue on her home medications and follow up with Dr. Hills as outpatient for left heart catheterization. The patient verbalized her understanding of discharge plan and it was at that time, the patient was determined to be medically stable for discharge home on 06/10/2018. DISCHARGE MEDICATIONS: 1. Lisinopril 2.5 mg every evening. 2. Digoxin 125 mcg oral daily. 3. Carvedilol 6.25 mg twice daily. 4. Aspirin 81 mg daily. 5. Protonix 40 mg oral twice daily. 6. Insulin Detemir 25 units subcutaneous at bedtime. 7. Vitamin D3 of 5000 units oral daily. 8. [place]-3 acid Ethyl [place] 4 gram oral daily. 9. Gabapentin 600 mg oral 3 times daily. 10. Humalog mix 20 units subcutaneously daily as needed for hyperglycemia. 11. Niacin 1000 mg oral at bedtime. 12. Furosemide 20 mg oral daily. 13. Ipratropium bromide 1 spray each nostril twice daily. 14. Apixaban 2.5 mg oral twice daily. 15. Diphenhydramine 25 mg oral at bedtime as needed for allergies. 16. Vitamin B complex 1 cap oral daily. FOLLOWUP: The patient is to follow up with her primary care physician, Dr. Becky Lopez in 1-2 we eks. She was also instructed to follow up with Dr. Hills in 1-2 weeks. CONDITION ON DISCHARGE: Stable. ACTIVITY: As tolerated. DIET: Heart healthy diet. CODE STATUS: FULL CODE. DISPOSITION: To home on 06/10/2018.
--- NOTE | 2018-06-20 16:41 | EKG ---
Test Reason : Blood Pressure : / mmHG Vent. Rate : 083 BPM Atrial Rate : 083 BPM P-R Int : 176 ms QRS Dur : 152 ms QT Int : 416 ms P-R-T Axes : 035 044 029 degrees QTc Int : 488 ms Atrial-sensed ventricular-paced rhythm Abnormal ECG Confirmed by YASEMIN EVERETT DO ([id number]), manuscript editor BOYD TIJERINA ([id number] on 06/20/2018 4:40:39 PM Referred By: Confirmed By:YASEMIN EVERETT DO
== END 2018-06-10 16:38 | disposition home or self-care (01) ==
LOC: ERS 15:29 → 2SW 16:00 → ERS 18:12
PROVIDERS: ADMIT Family Medicine; ATTEND Family Medicine
DX: I11.0 Hypertensive heart disease with heart failure (principal); I50.23 Acute on chronic systolic (congestive) heart failure; I25.10 Atherosclerotic heart disease of native coronary artery without angina pectoris; E78.5 Hyperlipidemia, unspecified; E11.9 Type 2 diabetes mellitus without complications; E89.0 Postprocedural hypothyroidism; N39.0 Urinary tract infection, site not specified; I25.2 Old myocardial infarction; I48.91 Unspecified atrial fibrillation; I42.9 Cardiomyopathy, unspecified; Z79.01 Long term (current) use of anticoagulants; Z79.4 Long term (current) use of insulin; Z79.82 Long term (current) use of aspirin; Z79.899 Other long term (current) drug therapy; Z88.0 Allergy status to penicillin; Z88.1 Allergy status to other antibiotic agents; Z88.2 Allergy status to sulfonamides; Z88.5 Allergy status to narcotic agent; Z88.8 Allergy status to other drugs, medicaments and biological substances; Z95.1 Presence of aortocoronary bypass graft; Z95.810 Presence of automatic (implantable) cardiac defibrillator
CPT/HCPCS: 80053; 80162; 82553; 82962 ×3; 83735; 83880; 84484; 84550; 85025; 87086; 93005; 93798 ×2; 96365; 96375; 96376 ×2; 99285; G0378 ×2; 36415; 36416; 81003; 81015; 84443; J0696; J1940; J7050; S0028

== ENCOUNTER 2019-02-03 12:21 | Emergency (ER) | payer MEDICARE ==
[2019-02-03 12:54] LABS: Bilirubin Negative (Negative); Blood, Urine Negative (Negative); Clarity CLEAR (Clear); Glucose, Urine (Dipstick) 100 mg/dL (Negative); Leukocyte Negative (Negative); Nitrite Negative (Negative); Protein, Urine (Dipstick) Negative (Neg-Trace)
[2019-02-03] MEDS ORDERED: Furosemide 40 MG/4 ML VIAL ONE (13:13)
[2019-02-03 13:21] LABS: #Eosinphils 0.1 thou/uL (0.0-0.7); #Lymphocytes 1.1 thou/uL (1.20-3.40); #Monocytes 0.6 thou/uL (0.11-0.59); #Neutrophils 3.9 thou/uL (1.40-6.50); %Basophils 0.8 % (0.0-1.0); %Eosinophils 2.5 % (0.0-10.0); %Lymphocytes 19.5 % (21.0-51.0); %Monocytes 10.6 % (0.0-10.0); %Neutrophils 66.6 % (42.0-75.0); Hemoglobin 12.1 g/dL (12.0-16.0); Mean Corpuscular Hemoglobin 28.5 pg (27.0-31.0); Mean Corpuscular Volume 89.2 fL (78.0-98.0); Mean Platelet Volume 10.5 fL (7.4-10.4); Platelet Count 99 thou/uL (130-400); RBC Distribution Width 15.9 % (11.5-14.5); Red Blood Cell (RBC) Count 4.23 mill/uL (4.20-5.40); White Blood Cell (WBC) Count 5.8 thou/uL (4.8-10.8)
--- NOTE | 2019-02-03 13:28 | RAD ---
SINGLE VIEW OF THE CHEST: COMPARISON: 05/04/2018. HISTORY: Shortness of breath and dyspnea. FINDINGS: A single view of the chest shows an enlarged but stable cardiomediastinal silhouette. The patient is status post sternotomy. The pacemaker is unchanged in position. There is no evidence of consolidat ion, mass, or pleural effusion. IMPRESSION: Stable cardiomegaly. POS: CET
[2019-02-03 14:29] LABS: Albumin 4.3 g/dL (3.4-4.8)
[2019-02-03 14:30] LABS: Chloride 99 mmol/L (98-107); Potassium 4.4 mmol/L (3.5-5.1); Sodium 134 mmol/L (136-145)
[2019-02-03 14:31] LABS: Calcium 9.8 mg/dL (7.8-10.44); Glucose 246 mg/dL (83-110)
[2019-02-03 14:32] LABS: Globulin 2.9 g/dL (2.4-3.5); Protein, Total 7.2 g/dL (6.0-8.3)
[2019-02-03 14:33] LABS: Anion Gap 12 mmol/L (10-20); Bilirubin, Total 1.4 mg/dL (0.2-1.2); Carbon Dioxide 27 mmol/L (23-31)
[2019-02-03 14:34] LABS: Alkaline Phosphatase 122 U/L (40-150)
[2019-02-03 14:35] LABS: Calc. Creatinine Clearance 0 mL/min (70-130); Estimated GFR-MDRD 42
[2019-02-03 14:36] LABS: BUN (Urea Nitrogen) 24 mg/dL (9.8-20.1)
[2019-02-03 14:37] LABS: ALT (SGPT) 29 U/L (8-55); AST (SGOT) 34 U/L (5-34)
== END 2019-02-03 15:10 | disposition home or self-care (01) ==
LOC: ERS 12:21
DX: I11.0 Hypertensive heart disease with heart failure (principal); I50.9 Heart failure, unspecified
CPT/HCPCS: 36415; 71045; 80053; 81003; 83880; 84484; 85025; 93005; 96374; J1940

== ENCOUNTER 2019-03-07 12:56 | Outpatient (CLI) | payer MEDICARE ==
--- NOTE | 2019-03-07 14:39 | MMO ---
Bilateral MAMMO Bilat Screen [facility]. CLINICAL HISTORY: Patient is 83 years old and is seen for screening. The patient has no family history of breast cancer. 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 The patient has a history of bilateral Excisional Biopsy in 1972 - benign and left Lumpectomy in 2003 - invasive ductal carcinoma - positive for malignancy. VIEWS: The views performed were: bilateral craniocaudal with tomosynthesis and bilateral mediolateral oblique with tomosynthesis. FILMS COMPARED: The present examination has been compared to prior imaging studies performed at [facility] on 02/12/2015, 02/18/2016, 02/24/2017 and 02/28/2018. MAMMOGRAM FINDINGS: The breasts are heterogeneously dense, which could obscure a lesion on mammography. Benign calcifications are noted bilaterally. There are stable post-operative changes and skin thickening in the left breast. There are no suspicious masses, suspicious calcifications, or new areas of architectural distortion. IMPRESSION: THERE IS NO MAMMOGRAPHIC EVIDENCE OF MALIGNANCY. A ROUTINE FOLLOW-UP MAMMOGRAM IN 1 YEAR IS RECOMMENDED. THE RESULTS OF THIS EXAM WERE SENT TO THE PATIENT. ACR BI-RADS Category 2 - Benign finding MAMMOGRAPHY NOTE: 1. A negative mammogram report should not delay a biopsy if a dominant of clinically suspicious mass is present. 2. Approximately 10% to 15% of breast cancers are not detected by mammography. 3. Adenosis and dense breasts may obscure an underlying neoplasm. Reported by: JOSE ELIAS JEWELL MD Electonically Signed: [id number]
== END 2019-03-07 12:57 | disposition home or self-care (01) ==
LOC: BICMAMMO 12:56
PROVIDERS: ATTEND Family Medicine
DX: Z12.31 Encounter for screening mammogram for malignant neoplasm of breast (principal); Z85.3 Personal history of malignant neoplasm of breast
CPT/HCPCS: 77063; 77067

== ENCOUNTER 2019-09-14 15:43 | Emergency (ER) | payer MEDICARE ==
[2019-09-14] MEDS ORDERED: Furosemide 40 MG/4 ML VIAL ONE (18:22)
[2019-09-14 18:37] LABS: ALT (SGPT) 29 U/L (8-55); AST (SGOT) 43 U/L (5-34); Albumin 4.5 g/dL (3.4-4.8); Alkaline Phosphatase 161 U/L (40-110); Anion Gap 17 mmol/L (10-20); BUN (Urea Nitrogen) 31 mg/dL (9.8-20.1); Bilirubin, Total 1.3 mg/dL (0.2-1.2); CK (CPK) 115 U/L (29-168); Calc. Creatinine Clearance 0 mL/min (70-130); Calcium 10.1 mg/dL (7.8-10.44); Carbon Dioxide 24 mmol/L (23-31); Chloride 99 mmol/L (98-107); Estimated GFR-MDRD 37; Globulin 3.3 g/dL (2.4-3.5); Glucose 266 mg/dL (83-110); Protein, Total 7.8 g/dL (6.0-8.3); Sodium 135 mmol/L (136-145)
--- NOTE | 2019-09-14 20:15 | RAD ---
XR Chest 1 View Portable History: Fall. Chest pain Comparison: Radiograph January 2019 Findings: Heart size markedly enlarged. Mild pulmonary venous congestion and early edema. Moderate to large hiatal hernia. No pneumothorax. No acute displaced rib fracture. Impression: 1. Findings of mild decompensated congestive heart failure. 2. Moderate to large sliding hiatal hernia.
[2019-09-14 20:26] LABS: #Basophils 0.1 thou/uL (0.0-0.2); #Lymphocytes 1.4 thou/uL (1.20-3.40); #Monocytes 0.7 thou/uL (0.11-0.59); %Basophils 1.3 % (0.0-1.0); %Eosinophils 0.8 % (0.0-10.0); %Lymphocytes 26.3 % (21.0-51.0); %Monocytes 13.6 % (0.0-10.0); %Neutrophils 58.1 % (42.0-75.0); Hemoglobin 11.8 g/dL (12.0-16.0); Mean Corpuscular HGB CONC 30.2 g/dL (32.0-36.0); Mean Corpuscular Hemoglobin 26.1 pg (27.0-31.0); Mean Corpuscular Volume 86.5 fL (78.0-98.0); Mean Platelet Volume 9.9 fL (7.4-10.4); Platelet Count 89 thou/uL (130-400); RBC Distribution Width 17.1 % (11.5-14.5); Red Blood Cell (RBC) Count 4.51 mill/uL (4.20-5.40); White Blood Cell (WBC) Count 5.2 thou/uL (4.8-10.8)
--- NOTE | 2019-09-15 01:40 | CON ---
DATE OF CONSULTATION: 09/14/2019 REQUEST SOURCE: Emergency Room. HISTORY OF PRESENT ILLNESS: An 84-year-old female, tripped today due to unsteady gate at 1:30 p.m.. States she was not able to brace her fall. She is concerned of bleeds because she takes Eliquis. REVIEW OF SYSTEMS: CONSTITUTIONAL: Denies fever or chills. ENT: Denies hearing loss, sore throat, or bloody nose. CARDIAC: Denies chest pain, shortness of breath, or diaphoresis. PULMONARY: Denies shortness of breath, cough, or hemoptysis. GI: Denies abdominal pain, nausea, vomiting, diarrhea, change in stool formation, or inconsistency. : Denies trouble with urination, frequency of urination, or bloody urine. SKIN: She has some bruising and laceration. MUSCULOSKELETAL: As per the history of present illness. NEUROLOGICAL: As per the history of present illness. PSYCHOLOGICAL: As per the history of present illness. PHYSICAL EXAMINATION: GENERAL: The patient is able to follow commands by showing 2 fingers and able to stick out her tongue. HEENT: Pupils are normal. Normal extraocular movements, normal facial sensation. The patient was able to close eyes tightly and smile. No lack of hearing. The patient was able to open mouth and say "ahh." MUSCULOSKELETAL: 4/5 shoulder shrug against resistance. The patient was able to stick out tongue. 4/5 Biceps, triceps, wrist extensors, and wrist flexors ( acceptable for her age). GCS: (6) obeying commands, (5) orientated, (4) spontaneous eye opening. IMAGING DATA: Radiology was reviewed by Dr. Howard. CT scan showed no intracranial bleed or hematoma. There was an old fracture to the body of C2 and the base of the odontoid process. PLAN: The patient may be discharged with a Hewitt J collar and follow up in 1 to 2 weeks in Neurosurgery's office. Job ID: [id number] [facility]
== END 2019-09-14 22:08 | disposition home or self-care (01) ==
LOC: ERS 15:43
DX: S12.000A Unspecified displaced fracture of first cervical vertebra, initial encounter for closed fracture (principal); S12.100A Unspecified displaced fracture of second cervical vertebra, initial encounter for closed fracture; I25.10 Atherosclerotic heart disease of native coronary artery without angina pectoris; I11.0 Hypertensive heart disease with heart failure; I50.9 Heart failure, unspecified; E11.9 Type 2 diabetes mellitus without complications; Z79.4 Long term (current) use of insulin; Z79.82 Long term (current) use of aspirin; Z79.891 Long term (current) use of opiate analgesic; Z79.899 Other long term (current) drug therapy; W01.0XXA Fall on same level from slipping, tripping and stumbling without subsequent striking against object, initial encounter
CPT/HCPCS: 36415; 71045; 80053; 82550; 83880; 84484; 85025; 93005; 96374; J1940